=== PATIENT | male | born 1985 | race Caucasian/White ===

== ENCOUNTER 2017-01-10 03:51 | Emergency (ER) | payer SELFPAY ==
[~2017-01-10] VITALS: Ht 175.3 cm; Wt 73.0 kg
[2017-01-10 03:53] VITALS: BP 124/80
== END 2017-01-10 04:58 | disposition home or self-care (01) ==
LOC: ED 04:52
DX: L03.113 Cellulitis of right upper limb (principal); L25.9 Unspecified contact dermatitis, unspecified cause; F17.210 Nicotine dependence, cigarettes, uncomplicated
CPT/HCPCS: 99283

== ENCOUNTER 2017-01-13 07:01 | Emergency (ER) | payer SELFPAY ==
[~2017-01-13] VITALS: Ht 175.3 cm; Wt 74.4 kg
[2017-01-13 07:02] VITALS: BP 140/86
[2017-01-13] MEDS ORDERED: DIPHENHYDRAMINE 25 MG CAPSULE ONE (08:17)
[2017-01-13] MEDS ORDERED: IBUPROFEN 200 MG TABLET ONE (08:17)
[2017-01-13] MEDS ORDERED: DIPHENHYDRAMINE 50 MG CAPSULE PO ONE (08:30)
[2017-01-13] MEDS ORDERED: IBUPROFEN 200 MG TABLET PO ONE (08:30)
== END 2017-01-13 08:27 | disposition home or self-care (01) ==
LOC: ED 07:30
DX: L24.5 Irritant contact dermatitis due to other chemical products (principal); F12.10 Cannabis abuse, uncomplicated
CPT/HCPCS: 99283

== ENCOUNTER 2019-10-10 13:58 | Emergency (ER) | payer MEDICAID ==
[~2019-10-10] VITALS: Ht 175.3 cm; Wt 74.8 kg
--- NOTE | 2019-10-10 14:03 | NUR ---
NO ANSWER IN LOBBY X1 @[phone]
[2019-10-10 14:04] VITALS: BP 111/60
== END 2019-10-10 14:19 | disposition left against medical advice (07) ==
LOC: ED 14:13
DX: K08.89 Other specified disorders of teeth and supporting structures (principal); Z53.21 Procedure and treatment not carried out due to patient leaving prior to being seen by health care provider